=== PATIENT | male | born 1960 | race Caucasian/White ===

== ENCOUNTER 2017-07-25 20:03 | Emergency (ER) | payer OTHER ==
[2017-07-25 20:12] VITALS: RESP 18
[2017-07-25] MEDS ORDERED: DIPH,PERTUS(ACELL)TETVAC-LF 0.5 ML VIAL IM ONE (21:06)
[2017-07-25] MEDS ORDERED: CEPHALEXIN 500MG STARTER PACK 4 CAP BTL PO STA (21:07)
--- NOTE | 2017-07-25 21:14 | ED ---
General Adult HPI - General Source: patient, family, EMS, RN notes reviewed Mode of arrival: EMS Limitations: no limitations <Nain Boone - Last Filed: 07/25/17 21:02> <Jameel Jones - Last Filed: 07/25/17 22:44> - General Chief complaint: Fall Stated complaint: Laceration Time Seen by Provider: 07/25/17 20:12 - History of Present Illness Initial comments: Chief complaint and history of present illness a 56-year-old male who is intoxicated. Reportedly fell at the bar. Presents now with laceration to his left ear. No reported loss of consciousness. No reported seizure activity. The patient has not called back. (Nain Boone) - Related Data Home Medications Medication Instructions Recorded Confirmed Multivitamins, Thera [Multivitamin 1 tab PO DAILY 07/25/17 07/25/17 (formulary)] Previous Rx's Medication Instructions Recorded Cephalexin [Keflex] 500 mg PO Q6HR #20 cap 07/25/17 Allergies Allergy/AdvReac Type Severity Reaction Status Date / Time No Known Allergies Allergy Verified 07/25/17 20:19 Review of Systems ROS Other: All systems not noted in ROS Statement are negative. <Nain Boone - Last Filed: 07/25/17 21:02> ROS Other: All systems not noted in ROS Statement are negative. <Jameel Jones - Last Filed: 07/25/17 22:44> ROS Statement: Those systems with pertinent positive or pertinent negative responses have been documented in the HPI. review of systems patient denies headache or neck pain. Answering questions appropriately but is intoxicated. Patient denies chest pain shortness breath GI / problems. No apparent neuro deficits other than being intoxicated. Past medical problems significant for GERD, osteoarthritis, he's had reconstruction of his left wrist. Family history esophageal cancer. Patient has ALLERGY to dust. Denies smoking or alcohol abuse. (Nain Boone) Past Medical History Past Medical History: GERD/Reflux, Osteoarthritis (OA) History of Any Multi-Drug Resistant Organisms: None Reported Past Surgical History: Orthopedic Surgery Additional Past Surgical History / Comment(s): reconstruction left wrist/ DEBRIDEMENT OF SCROTAL WOUND 2013 Past Anesthesia/Blood Transfusion Reactions: No Reported Reaction Past Psychological History: No Psychological Hx Reported Smoking Status: Never smoker Past Alcohol Use History: Occasional Past Drug Use History: Marijuana - Past Family History Father Family Medical History: Cancer <Nain Boone - Last Filed: 07/25/17 21:02> General Exam Limitations: no limitations <Nain Boone - Last Filed: 07/25/17 21:02> <Jameel Jones - Last Filed: 07/25/17 22:44> - General Exam Comments Initial Comments: General: The patient is awake , alert, brought in by EMS. Laceration left ear. Vital signs temperature 97.9 pulse 81 respiratory rate 18 pulse ox 96% room air blood pressure 119/65 Eye: Pupils are equal, round and reactive to light, extra-ocular movements are intact ; there is normal conjunctiva bilaterally. No signs of icterus. Ears, nose, mouth and throat: There are moist mucous membranes and no oral lesions. examination of left ear shows a laceration through and through. This was anesthetized cleaned and closed, see procedure. Neck: The neck is supple, there is no tenderness Cardiovascular: no murmur appreciated. Respiratory: lungs are clear to auscultation Gastrointestinal: abdomen soft to palpation. Back: no complaints of pain. Musculoskeletal: Normal ROM, no tenderness, There is no pedal edema. There is no calf tenderness or swelling. Sensation intact. Pulses equal bilaterally 2+. Neurological: intoxicated but neurologically intact. Skin: Skin is warm and dry and no rashes or lesions are noted. Psychiatric: alcoholic , denies depression (Nain Boone) Course <PaoloNain gamez - Last Filed: 07/25/17 21:02> <Jameel Jones - Last Filed: 07/25/17 22:44> Vital Signs 07/25/17 20:07 Temperature 97.9 F Pulse Rate 81 Respiratory 18 Rate Blood Pressure 119/65 O2 Sat by Pulse 96 Oximetry - Reevaluation(s) Reevaluation #1: 07/25/17 22:43 Is awake and alert, has family to be discharged home to (Jameel Jones) Procedures <PaoloNain - Last Filed: 07/25/17 21:02> <Jameel Jones - Last Filed: 07/25/17 22:44> - Procedures Initial comment: procedure; using 1% lidocaine the laceration to the ear lobe left side was cleaned. 5-0 nylon was used to close the wound. Approximately 10 interrupted mattress style sutures are placed. The patient's tetanus shot was updated replaced on cephalexin. Advised to return in 10 days for suture to remove the reduction of any signs of infection. Dr. Boone (Nain Boone) Medical Decision Making <Nain Boone - Last Filed: 07/25/17 21:02> <Jameel Jones - Last Filed: 07/25/17 22:44> - Medical Decision Making medical decision making; patient presents emergency room intoxicated, fell at the bar, laceration left ear. CT of the brain and cervical spine pending. This case is endorsed final disposition to Dr. Livingston (Nain Boone) 56 male status post fall, laceration was repaired here in the emergency room, patient had CT brain and C-spine which were negative for traumatic injury. Patient will be discharged home (Jameel Jones) Disposition <Nain Boone - Last Filed: 07/25/17 21:02> <Jameel Jones - Last Filed: 07/25/17 22:44> Clinical Impression: Fall, Head injury, Alcohol intoxication, Laceration of ear Disposition: HOME SELF-CARE Condition: Good Instructions: Fall Prevention for Older Adults (ED), Laceration (ED), Head Injury (ED) Prescriptions: Cephalexin [Keflex] 500 mg PO Q6HR #20 cap Referrals: None,Stated [Primary Care Provider] - 1-2 days
--- NOTE | 2017-07-25 22:25 | CT ---
EXAMINATION TYPE: CT brain althea mann DATE OF EXAM: 07/25/2017 COMPARISON: NONE HISTORY: fall injury with headache and neck pain CT DLP: head 1150.50 and body 337.50 mGycm. Automated Exposure Control for Dose Reduction was Utilize d. TECHNIQUE: CT scan of the head and cervical spine are performed without contrast. FINDINGS: There is no acute intracranial hemorrhage or midline shift identified. There is and ventr icular and sulcal prominence felt to reflect mild to moderate diffuse age-related cerebral atrophy. T here is moderate to severe mucosal thickening involving ethmoid sinuses bilaterally. There is mild to moderate mucosal thickening involving visualized portion of both maxillary sinuses. There is moderat e mucosal thickening involving left sphenoid sinus. There is eccentric moderate mucosal thickening an teriorly in right sphenoid sinus. The globes are intact bilaterally. The calvarium is intact Cervical spine is visualized in its entirety from C1 through upper thoracic levels and demonstrates s atisfactory alignment without evidence of acute fracture or dislocation. Prevertebral soft tissue ap pears within normal limits. The C1-C2 articulation is within normal limits on the coronal images. Vertebral body heights are maintained. There is mild to moderate disc space narrowing most prominent posteriorly C6-C7 level where there is sclerosis. There is mild anterior spurring. There is mild ante rior spurring also seen C5-C6 level. No large posterior disc herniations are seen on sagittal images. There is suspected greater than 1 cm nodule left thyroid lobe seen best coronal image 13. Thyroid is overall heterogeneous. Nonemergent follow-up advised. Axial images shows multilevel uncovertebral fa cet degenerative changes bilaterally attributed to multilevel neural foraminal narrowing. There is ce ntral disc protrusion effacing anterior thecal sac C5-C6 level on axial image 54. Lung apices are allison ssly clear. IMPRESSION: 1. There is no acute fracture or dislocation evident in the cervical spine. Greater than 1 cm left th yroid nodule suspected. Nonemergent thyroid ultrasound follow-up advised. 2. No acute intracranial hemorrhage hemorrhage or midline shift is seen. Mild to moderate diffuse cer ebral atrophy noted.
[2017-07-25 22:59] VITALS: BP 115/63; PULSE 75; TEMP 97.5
--- NOTE | 2017-07-28 04:06 | CDI ---
Documentation Clarification OP Dear Jameel Collins Please do addendum to ED report for missing Ear laceration repair length. Thank you, Domitila Salmon Resort Manager If you have any questions, please contact Preload Supervisor at [phone] [facility]
== END 2017-07-25 23:30 | disposition home or self-care (01) ==
LOC: EC 20:03
DX: S01.312A Laceration without foreign body of left ear, initial encounter (principal); F10.120 Alcohol abuse with intoxication, uncomplicated; Z23 Encounter for immunization; Z79.899 Other long term (current) drug therapy; W01.198A Fall on same level from slipping, tripping and stumbling with subsequent striking against other object, initial encounter; Y92.59 Other trade areas as the place of occurrence of the external cause
CPT/HCPCS: 12013; 70450; 72125; 90471; 90715; 99284

== ENCOUNTER → 2017-08-12 | Outpatient (CLI) | payer OTHER ==
--- NOTE | 2017-08-13 19:13 | US ---
EXAMINATION TYPE: US thyroid st tissue head/neck DATE OF EXAM: 08/12/2017 COMPARISON: CT 2018 CLINICAL HISTORY: R22.0 SWELLING MASS. Thyroid nodule seen on recent CT GLAND SIZE: Right Lobe: 5.0 x 1.8 x 1.7 cm Overall Parenchyma: homogenous Left Lobe: 3.9 x 2.0 x 1.6 cm Overall Parenchyma: homogeneous Isthmus Thickness: 0.5 cm NODULES RIGHT: # of nodules measured on right: 1 1. 0.8 X 0.6 x 0.7 cm hypoechoic solid nodule at the mid pole with well-defined margins. This nodul e is wider than tall and shows intranodular vascularity. Prior size: no previous LEFT: # of nodules measured on left: 2 1. 1.4 X 0.9 x 1.1 cm hypoechoic solid nodule at the mid pole with well-defined margins and small c alcification. This nodule is wider than tall and shows intranodular vascularity. Prior size: no previous 2. 0.7 X 0.7 x 0.7 cm hypoechoic solid nodule at the mid pole with well-defined margins; interrupted peripheral calcification. This nodule is wider than tall and shows intranodular vascularity. Prior size: no previous ISTHMUS: # of nodules measured in the isthmus: 0 Bilateral neck scanned, no evidence of lymphadenopathy. IMPRESSION: 1. Greater than 1 cm left lobe thyroid nodule. Consider correlation with nuclear medicine thyroid sca n. 2. Bilateral subcentimeter nodules.
== END | disposition home or self-care (01) ==
LOC: RADUSWWP 16:20
PROVIDERS: ATTEND Internal Medicine
DX: E04.2 Nontoxic multinodular goiter (principal)
CPT/HCPCS: 76536

== ENCOUNTER → 2017-09-28 | Outpatient (CLI) | payer OTHER ==
--- NOTE | 2017-09-28 17:03 | NM ---
EXAMINATION TYPE: NM thyroid image only DATE OF EXAM: 09/28/2017 COMPARISON: Ultrasound 08/12/2017 HISTORY: 56-year-old male abnormal thyroid labs TECHNIQUE: After the intravenous administration of 10.8 mCi Tc 99m Sodium Pertechnetate images of the thyroid gland were obtained in multiple projections. FINDINGS: Right lobe is larger than the left lobe reflecting the measurements on ultrasound. There is a round cold defect in the peripheral left mid pole corresponding to the dominant 1.4 cm nod ule seen on ultrasound. Otherwise, there is homogeneous glandular uptake. IMPRESSION: Cold nodule at the left midpole corresponding to the 1.4 cm nodule seen on ultrasound. No evidence fo r hyperfunctioning adenoma. FNA should be considered for this nodule.
== END | disposition home or self-care (01) ==
LOC: RADNMMAIN 10:49
PROVIDERS: ATTEND Internal Medicine
DX: E04.1 Nontoxic single thyroid nodule (principal)
CPT/HCPCS: 78013; A9512

== ENCOUNTER → 2017-11-23 | Outpatient (CLI) | payer OTHER | END | disposition home or self-care (01) | LOC: LABWHC1 15:38 | PROVIDERS: ATTEND Internal Medicine Endocrinology, Diabetes & Metabolism | DX: E03.8 Other specified hypothyroidism (principal) | CPT/HCPCS: 36415; 84443 ==

== ENCOUNTER → 2019-03-30 | Outpatient (CLI) | payer OTHER ==
--- NOTE | 2019-03-30 16:01 | US ---
EXAMINATION TYPE: US thyroid st tissue head/neck DATE OF EXAM: 03/30/2019 COMPARISON: Nuclear medicine thyroid scan dated 09/28/2017 and thyroid ultrasound dated 08/13/2017 CLINICAL HISTORY: R22.0 SWELLING/MASS/PALPABLE ABNORMALITY HEAD/NECK. GLAND SIZE: Right Lobe: 4.9 x 1.4 x 1.5 cm Overall Parenchyma: homogenous Left Lobe: 3.7 x 1.8 x 1.4 cm Overall Parenchyma: homogeneous Isthmus Thickness: 0.2 cm NODULES RIGHT: # of nodules measured on right: 1 1. 0.8 X 0.6 x 0.6 cm solid nodule at the mid pole with well-defined margins. This nodule is wider than tall and shows intranodular vascularity. Prior size: 0.8 x 0.6 x 0.7 cm LEFT: # of nodules measured on left: 2 1. 1.1 X1.4 x 0.8 cm solid nodule at the mid pole with well-defined margins . This nodule is wider than tall and shows intranodular vascularity. Prior size: 1.4 x 0.9 x 1.1cm 2. 0.7 X 0.7 x 0.6 cm solid nodule at the mid pole with well-defined margins . This nodule is wider than tall and shows intranodular vascularity. Prior size: 0.7 x 0.7 x 0.7 cm ISTHMUS: # of nodules measured in the isthmus: 0 Bilateral neck scanned, no evidence of lymphadenopathy. IMPRESSION: Similar size of the bilateral thyroid nodules in comparison to the exam of 08/13/2017. Specifically th ere is stable size of the 1.4 cm left thyroid nodule that was demonstrated to be a cold nodule on the prior nuclear medicine thyroid scan dated 09/28/2017.
== END ==
LOC: RADUSWWP 15:10
PROVIDERS: ATTEND Internal Medicine
DX: E04.2 Nontoxic multinodular goiter (principal)
CPT/HCPCS: 76536

== ENCOUNTER → 2019-03-30 | Outpatient (CLI) | payer OTHER ==
[2019-03-30 19:14] LABS: African American GFR (CKD) 107.2 (60.0-200.0); Albumin 4.5 g/dL (3.80-4.90); Anion Gap 7.2 mmol/L (4.00-12.00); BUN/Creat Ratio 14.44 Ratio (12.00-20.00); Calcium 9.6 mg/dL (8.7-10.3); Carbon Dioxide 26.8 mmol/L (21.6-31.8); Globulin 1.5 g/dL (1.6-3.3); Potassium 4.3 mmol/L (3.5-5.5); Total Bilirubin 0.3 mg/dL (0.2-1.2)
== END | disposition home or self-care (01) ==
LOC: LABWHC1 14:47
PROVIDERS: ATTEND Internal Medicine Endocrinology, Diabetes & Metabolism
DX: E10.65 Type 1 diabetes mellitus with hyperglycemia (principal)
CPT/HCPCS: 36415; 80053; 83519; 84681

== ENCOUNTER → 2019-07-05 | Outpatient (CLI) | payer OTHER ==
[2019-07-05 23:44] LABS: African American GFR (CKD) 94.4 (60.0-200.0); Albumin 4.8 g/dL (3.80-4.90); Anion Gap 9.8 mmol/L (4.00-12.00); Calcium 9.6 mg/dL (8.7-10.3); Carbon Dioxide 25.2 mmol/L (21.6-31.8); Chol/HDL Ratio 4.2; Globulin 1.6 g/dL (1.6-3.3); LDL Cholesterol,Calculated 216.4 mg/dL (0.0-131.0); Non-African American GFR(CKD) 81.4 (60.0-200.0); Total Bilirubin 0.4 mg/dL (0.2-1.2); Total Protein 6.4 g/dL (6.2-8.2); VLDL Calculation 20.6 mg/dL (5.00-40.00)
[2019-07-06 01:45] LABS: Hemoglobin A1C 5.9 % (4.0-6.0)
== END | disposition home or self-care (01) ==
LOC: LABWHC1 15:44
PROVIDERS: ATTEND Internal Medicine Endocrinology, Diabetes & Metabolism
DX: E10.65 Type 1 diabetes mellitus with hyperglycemia (principal)
CPT/HCPCS: 36415; 80053; 80061; 82043; 82570; 83036; 84443

== ENCOUNTER → 2020-05-03 | Outpatient (CLI) | payer OTHER ==
[2020-05-04 00:40] LABS: Hemoglobin A1C 11.7 % (4.0-6.0)
[2020-05-04 03:49] LABS: African American GFR (CKD) 111.7 (60.0-200.0); Albumin 4.3 g/dL (3.80-4.90); Albumin/Globulin Ratio 2.26 (1.60-3.17); Anion Gap 10.6 mmol/L (4.00-12.00); BUN/Creat Ratio 18.75 Ratio (12.00-20.00); Calcium 9.4 mg/dL (8.7-10.3); Carbon Dioxide 24.4 mmol/L (21.6-31.8); Chol/HDL Ratio 2.7; Globulin 1.9 g/dL (1.6-3.3); LDL Cholesterol,Calculated 142.8 mg/dL (0.0-131.0); Non-African American GFR(CKD) 96.4 (60.0-200.0); Potassium 4.2 mmol/L (3.5-5.5); Total Bilirubin 0.7 mg/dL (0.2-1.2); Total Protein 6.2 g/dL (6.2-8.2); VLDL Calculation 20.2 mg/dL (5.00-40.00)
[2020-05-04 07:40] LABS: Urine Creatinine 107.3 mg/dL
== END | disposition home or self-care (01) ==
LOC: LABWHC1 15:13
PROVIDERS: ATTEND Internal Medicine Endocrinology, Diabetes & Metabolism
DX: E10.65 Type 1 diabetes mellitus with hyperglycemia (principal)
CPT/HCPCS: 36415; 80053; 80061; 82043; 82570; 83036; 84443

== ENCOUNTER → 2020-11-22 | Outpatient (CLI) | payer OTHER ==
[2020-11-22 15:08] LABS: Albumin 4.6 g/dL (3.80-4.90); Albumin/Globulin Ratio 2.56 (1.60-3.17); Anion Gap 10.3 mmol/L (4.00-12.00); BUN/Creat Ratio 18.75 Ratio (12.00-20.00); Calcium 9.4 mg/dL (8.7-10.3); Carbon Dioxide 25.7 mmol/L (21.6-31.8); Chol/HDL Ratio 2.53; Globulin 1.8 g/dL (1.6-3.3); LDL Cholesterol,Calculated 131.8 mg/dL (0.0-131.0); Non-African American GFR(CKD) 95.7 (60.0-200.0); Potassium 4.4 mmol/L (3.5-5.5); Total Bilirubin 0.7 mg/dL (0.3-1.2); Total Protein 6.4 g/dL (6.2-8.2); VLDL Calculation 16.2 mg/dL (5.00-40.00)
[2020-11-23 03:12] LABS: Urine Creatinine 75.2 mg/dL
== END | disposition home or self-care (01) ==
LOC: LABWHC1 07:04
PROVIDERS: ATTEND Internal Medicine Endocrinology, Diabetes & Metabolism
DX: E10.65 Type 1 diabetes mellitus with hyperglycemia (principal); E04.2 Nontoxic multinodular goiter
CPT/HCPCS: 36415; 80053; 80061; 82043; 82570; 83036; 84443

== ENCOUNTER → 2020-12-31 | Outpatient (CLI) | payer OTHER ==
--- NOTE | 2020-12-31 08:57 | US ---
EXAMINATION TYPE: US prostate transrectal DATE OF EXAM: 12/31/2020 COMPARISON: NONE CLINICAL HISTORY: R97.2 Elevated prostate specific antigen [PSA]. Patient states he has an enlarged p rostate. Patient states he has difficulty urinating at night. This examination was performed using the transrectal probe. EXAM MEASUREMENTS: Gland Size: 5.0 x 4.6 x 3.0 cm Volume: 36.7 ml Predicted PSA: 4.4 Actual PSA (if available):6.0 Peripheral zone appears heterogenous with no prominent masses or lesions seen. Femoral vesicles within normal limits on initial images. Prostate gland is slightly enlarged in size. Central calcifications. No hypoechoic nodules. IMPRESSION: Slightly enlarged prostate consistent with BPH. No suspicious nodules. Because of actual PSA out of proportion to predicted PSA consider further investigation with random sampling and/or MR I. Predicted PSA = volume x 0.12 ng/ml Calculated Volume = 0.5236 x L x W x H
== END | disposition home or self-care (01) ==
LOC: RADUSWWP 06:54
PROVIDERS: ATTEND Urology
DX: N40.0 Benign prostatic hyperplasia without lower urinary tract symptoms (principal)
CPT/HCPCS: 76872

== ENCOUNTER → 2021-04-08 | Outpatient (CLI) | payer OTHER ==
[2021-04-08 12:29] LABS: Hemoglobin A1C 10.7 % (4.0-6.0)
[2021-04-08 13:14] LABS: African American GFR (CKD) 93.1 (60.0-200.0); Albumin 4.6 g/dL (3.80-4.90); Albumin/Globulin Ratio 2.19 (1.60-3.17); Anion Gap 9.1 mmol/L (4.00-12.00); Calcium 9.8 mg/dL (8.7-10.3); Carbon Dioxide 27.9 mmol/L (21.6-31.8); Chol/HDL Ratio 3.07; Globulin 2.1 g/dL (1.6-3.3); LDL Cholesterol,Calculated 123.8 mg/dL (0.0-131.0); Non-African American GFR(CKD) 80.3 (60.0-200.0); Potassium 4.8 mmol/L (3.5-5.5); Total Bilirubin 0.5 mg/dL (0.2-1.2); Total Protein 6.7 g/dL (6.2-8.2); VLDL Calculation 52.2 mg/dL (5.00-40.00)
[2021-04-08 13:21] LABS: T4, Free (Free Thyroxine) 1.1 ng/dL (0.80-1.80)
== END | disposition home or self-care (01) ==
LOC: LABWHC1 07:08
PROVIDERS: ATTEND Internal Medicine
DX: C61 Malignant neoplasm of prostate (principal); I10 Essential (primary) hypertension; E03.9 Hypothyroidism, unspecified; E78.5 Hyperlipidemia, unspecified; E11.9 Type 2 diabetes mellitus without complications
CPT/HCPCS: 36415; 80053; 80061; 83036; 84439; 84443; 84481

== ENCOUNTER → 2021-05-02 | Outpatient (CLI) | payer OTHER ==
--- NOTE | 2021-05-02 09:16 | XR ---
EXAMINATION TYPE: XR chest 2V DATE OF EXAM: 05/02/2021 COMPARISON: None INDICATION: Presurgical clearance, prostate cancer TECHNIQUE: Frontal and lateral views of the chest are obtained. FINDINGS: The heart size is normal. The pulmonary vasculature is normal. The lungs are clear. No suspicious sclerotic lesions identified within the osseous structures. IMPRESSION: 1. No acute pulmonary process.
[2021-05-02 09:24] LABS: Basophils # (A) 0.1 k/uL (0-0.2); Basophils % (A) 2 %; Eosinophils # (A) 0.4 k/uL (0-0.7); Eosinophils % (A) 7 %; HCT 45.4 % (39.0-53.0); HGB 15.8 gm/dL (13.0-17.5); Lymphocytes # (A) 1.6 k/uL (1.0-4.8); Lymphocytes % (A) 31 %; MCH 31.2 pg (25.0-35.0); MCHC 34.8 g/dL (31.0-37.0); MCV 89.8 fL (80.0-100.0); Mean Platelet Volume 7.6; Monocytes # (A) 0.4 k/uL (0-1.0); Monocytes % (A) 7 %; Neutrophils # (A) 2.6 k/uL (1.3-7.7); Neutrophils % (A) 50 %; Platelet Count 222 k/uL (150-450); RBC 5.06 m/uL (4.30-5.90); RDW 13.3 % (11.5-15.5); WBC 5.3 k/uL (3.8-10.6)
[2021-05-02 09:33] LABS: African American GFR (CKD) >90 (>60 ml/min/1.73 sqM); Anion Gap 7 mmol/L; Blood Urea Nitrogen 12 mg/dL (9-20); Calcium 9.7 mg/dL (8.4-10.2); Carbon Dioxide 26 mmol/L (22-30); Chloride 102 mmol/L (98-107); Glucose 169 mg/dL (74-99); Non-African American GFR(CKD) >90 (>60 ml/min/1.73 sqM); Potassium 4.3 mmol/L (3.5-5.1); Sodium 135 mmol/L (137-145)
[2021-05-02 10:34] LABS: Appearance,Urine Clear (Clear); Bilirubin,Urine Negative (Negative); Blood,Urine Negative (Negative); Color,Urine Light Yellow; Glucose,Urine (UA) Trace (Negative); Ketones,Urine Negative (Negative); Leukocyte Esterase,Urine Negative (Negative); Nitrite,Urine Negative (Negative); Protein,Urine Negative (Negative); Specific Gravity,Urine 1.004 (1.001-1.035); Urobilinogen,Urine <2.0 mg/dL (<2.0)
== END | disposition home or self-care (01) ==
LOC: LABPAT 08:24
PROVIDERS: ATTEND Urology
DX: Z01.818 Encounter for other preprocedural examination (principal); C61 Malignant neoplasm of prostate
CPT/HCPCS: 71046; 80048; 81003; 85025; 87086; 93005

== ENCOUNTER 2021-05-10 09:19 | Observation (INO) | payer OTHER ==
[2021-05-08 09:14] VITALS: BMI 24.3
--- NOTE | 2021-05-09 14:48 | P.HPIHPCON ---
History of Present Illness H&P Date: 05/09/21 This is a 60-year-old male with history of Casie 7(4+3) prostate cancer Discussed with him treatment option for his prostate cancer. Discussed with him surgery and radiation in detail. He agreed to proceed with a robotic prostatectomy. Discussed the risk of surgery which includes but not limited to bleeding, infection, injury to nearby organ, urinary incontinence, erectile dysfunction, cancer recurrence. Also discussed with him risk from anesthesia. He understood all the risk and agreed to proceed with robotic-assisted prostatectomy and pelvic lymph node dissection Consent for Procedure: I have explained the operation/procedure to the patient, including the risks, benefits, side effects, alternative therapies (including not receiving the proposed treatment or service), the likelihood of the patient achieving his/her goals, and potential recuperation problems for the procedure/sedation/analgesia, as well as any blood products, if indicated. I also explained to the patient the risks, benefits and side effects of the alternatives, as well as the risks related to not receiving the proposed procedure, care, treatment, or services. Past Medical History Past Medical History: Cancer, Diabetes Mellitus, GERD/Reflux, Osteoarthritis (OA), Thyroid Disorder Additional Past Medical History / Comment(s): TYPE 1, MIGRAINE HEADACHE, THYROID NODULE, PROSTATE CANCER , UVULA SURGERY History of Any Multi-Drug Resistant Organisms: None Reported Past Surgical History: Hernia Repair, Orthopedic Surgery Additional Past Surgical History / Comment(s): reconstruction left wrist, DEBRIDEMENT OF SCROTAL WOUND 2013, HERNIA REPAIR WITH MESH Past Anesthesia/Blood Transfusion Reactions: No Reported Reaction Smoking Status: Never smoker - Past Family History Father Family Medical History: Cancer Sister(s) Family Medical History: Cancer Additional Family Medical History / Comment(s): SKIN CANCER Medications and Allergies Home Medications Medication Instructions Recorded Confirmed Type Multivitamins, Thera [Multivitamin 1 tab PO DAILY 07/25/17 05/08/21 History (formulary)] Insulin Glargine,Hum.rec.anlog 28 units PO HS 03/30/19 05/08/21 History [Basaglar Kwikpen U-100] Insulin Aspart [NovoLOG Flexpen] 6 - 8 units SQ TID PRN 05/08/21 05/08/21 History Levothyroxine Sodium [Synthroid] 50 mcg PO DAILY 05/08/21 05/08/21 History Rosuvastatin [Crestor] 40 mg PO 1800 05/08/21 05/08/21 History Tamsulosin [Flomax] 0.4 mg PO 2100 05/08/21 05/08/21 History Allergies Allergy/AdvReac Type Severity Reaction Status Date / Time No Known Allergies Allergy Verified 05/08/21 08:08 Surgical - Exam - General no distress, no pain - Eyes PERRL, normal ocular movement - ENT normal nares, normal mucosa - Respiratory normal expansion, normal respiratory effort - Cardiovascular Rhythm: regular - Abdomen Abdomen: soft, non tender - Psychiatric oriented to time, oriented to person, oriented to place Assessment and Plan Assessment: 60-year-old male with history of prostate cancer Or for robotic prostatectomy with pelvic lymph node dissection
[~2021-05-10 09:19] MED LIST: DEXAMETHASONE SOD PHOSPHATE 4 MG/ML 1 ML VIAL IV ONE; ONDANSETRON 4 MG/2 ML VIAL IVP ONE
[2021-05-10 09:45] LABS: Glucose,Whole Blood 251 mg/dL (75-99)
[2021-05-10] MEDS: LACTATED RINGERS 1,000 ML IV SCH (10:01)
[2021-05-10] MEDS ORDERED: LACTATED RINGERS 1,000 ML IV ONE ×3 (10:01→16:56)
[2021-05-10] MEDS ORDERED: fentaNYL (PF) 50 MCG/ML 2 ML AMP IVP ONE (10:20)
[2021-05-10] MEDS ORDERED: MIDAZOLAM 2 MG/2 ML VIAL IVP ONE (10:20)
[2021-05-10] MEDS ORDERED: INSULIN ASPART (NovoLOG) 100 UNIT/ML VIAL SQ ONE ×2 (10:36→17:05)
[2021-05-10] MEDS: HEPARIN SODIUM,PORCINE/PF 5,000 UNIT/0.5 ML SYRINGE SQ PRN (10:36)
[2021-05-10] MEDS ORDERED: MIDAZOLAM 2 MG/2 ML VIAL ONE (12:14)
[2021-05-10] MEDS ORDERED: NEOSTIGMINE 1 MG/ML 10 ML VIAL ONE (12:14)
[2021-05-10] MEDS ORDERED: ROPIVACAINE 5 MG/ML 30 ML VIAL ONE (12:14)
[2021-05-10] MEDS ORDERED: ePHEDrine SULFATE/0.9% NACL/PF 50 MG/5 ML SYRINGE IV ONE (12:14)
[2021-05-10] MEDS ORDERED: SODIUM CHLORIDE 0.9% (PF) 10 ML VIAL ONE (12:14)
[2021-05-10] MEDS ORDERED: HYDROmorphone (PF) 1 MG/ML ONE (12:14)
[2021-05-10] MEDS ORDERED: LIDOCAINE 1% INJ 10MG/ML (20 ML MDV) ONE (12:14)
[2021-05-10] MEDS ORDERED: WATER FOR INJECTION, STERILE 10 ML VIAL IV ONE (12:14)
[2021-05-10] MEDS ORDERED: PROPOFOL 10 MG/ML 20 ML VIAL IV ONE (12:14)
[2021-05-10] MEDS ORDERED: ROCURONIUM 10 MG/ML (5 ML VIAL) IV ONE (12:14)
[2021-05-10] MEDS ORDERED: SUCCINYLCHOLINE CHLORIDE 100 MG/5 ML SYR IV ONE (12:14)
[2021-05-10] MEDS ORDERED: fentaNYL (PF) 50 MCG/ML 2 ML AMP ONE (12:14)
[2021-05-10] MEDS ORDERED: KETAMINE 10 MG/ML 20 ML VIAL ONE (12:14)
[2021-05-10] MEDS ORDERED: GLYCOPYRROLATE 0.2 MG/ML 2 ML VIAL ONE (12:14)
[2021-05-10] MEDS ORDERED: BUPIVACAINE (PF) 0.25% 30 ML VIAL SQ ONE (12:21)
--- NOTE | 2021-05-10 14:15 | P.ANPRN ---
Procedure Note - Anesthesia - Nerve Block Performed Bilateral Erector Spinae Single Time Out Performed: Yes (1019) Date of Procedure: 05/10/21 Procedure Start Time: Procedure Stop Time: Location of Patient: PreOp Indication: Acute Post-Operative Pain, Requested by Surgeon Specifically requested for management of pain by : Gregory Rodriguez Sedation Type: Sedate with meaningful contact maintained Preparation: Sterile Prep Position: Prone Catheter: None Needle Types: Pajunk Needle Gauge: 21 Ultrasound used to visualize needle placement: Yes Ultrasound used to observe medication spread: Yes Injectate: 0.5% Ropivacaine (see comment for volume) (15cc + nacl pf 15cc each side) Blood Aspirated: No Pain Paresthesia on Injection Noted: No Resistance on Injection: Normal Image Stored and Saved: Yes Events: Uneventful and Well Tolerated
[2021-05-10] MEDS ORDERED: ceFAZolin 1 GM in SODIUM CHLORIDE 0.9% 100 ML IVPB SCH (16:00)
--- NOTE | 2021-05-10 16:13 | P.OP ---
Date of Procedure: 05/10/21 Preoperative Diagnosis: prostate Cancer Postoperative Diagnosis: same Procedure(s) Performed: robotic prostatectomy , right sided lymph node dissection and extensive lysis of adhesions Implants: None Anesthesia: DARRYLA Surgeon: Gregory Rodriguez Estimated Blood Loss (ml): 100 Pathology: other (Prostate, bilateral seminal vesicle, right sided pelvic lymph nodes) Condition: stable Disposition: PACU Indications for Procedure: This is a 60-year-old male with history of Casie 7(4+3) prostate cancer Discussed with him treatment option for his prostate cancer. Discussed with him surgery and radiation in detail. He agreed to proceed with a robotic pr ostatectomy. Discussed the risk of surgery which includes but not limited to bleeding, infection, injury to nearby organ, urinary incontinence, erectile dysfunction, cancer recurrence. Also discussed with him risk from anesthesia. He understood all the risk and agreed to proceed with robotic-assisted prostatectomy and pelvic lymph node dissection Operative Findings: Extensive adhesion along the left quadrant, colon adherent to the left sided pelvic sidewall, Description of Procedure: After preoperative antibiotics were started, the patient was taken to the operating room. Anesthesia was induced and the patient was placed in supine position, with adequate padding of the pressure points, shoulders, back, legs and arms. He was then prepped and draped in the standard fashion. A critical pause was performed using two patient identifiers. A 16F haddad catheter was placed to gravity drainage. A pneumo-peritoneum was created with placement of a Veress needle to 20 mm Hg without complication, and a 8 Fr trocar was placed above the umbillicus. Under direct vision a 8mm robotic ports was placed lateral to each rectus slightly below the camera port. The left iliac fossa 8mm port was placed. The right professional nursing assistant right iliac fossa 12mm port and right paramedian 5mm portwere placed. After the patient was placed in the trendelenberg position, the robot was then docked to the 8mm robotic ports and then each robotic arm and tower was checked in relation to the patient's legs and hands to avoid inadvertent compression. The peritoneal cavity was inspected. Patient had extensive adhesions along the left quadrant, the colon was fixed to the left pelvic sidewall, the sigmoid colon occupied the entire cul-de-sac Using the monopolar scissors adhesion were taken down sharply, more than 45 minutes were spent lysing adhesions. I was able to mobilize the colon enough to free the cul-de-sac to perform robotic prostatectomy, but there was still extensive adhesion along the left side given the risk of injuring the colon decision was made not to proceed with left-sided pelvic lymph nodes. Right obturator and external iliac lymph node packets were carefully dissected after careful visualization of the hypogastric artery and obturator nerve. There was careful attention paid to hemostasis with judicious use of cautery. An inverted U-shaped incision began laterally to the left medial umbilical ligament and extended high across the midline to the right umbilical ligament. The limbs of the "U" extended to the level of the vasa on both sides. We next developed the preperitoneal space and the space of Retzius. Of note given his previous bilateral inguinal hernias, there was no clear surgical plane Cautery was used to dissected the bladder away from the prostate. After the anterior bladder neck was incised and the bladder entered the the posterior bladder neck was exposed and the ureteral orifces identified. The posterior bladder neck was then incised and dissected away from the prostate. The vas and the seminal vesicles were now exposed and dissected to their insertions into the prostate and were not spared. The posterior layer of the Denonvillier's fascia was incised to enter ruddy the plane between prostate and perirectal fat. Each lateral pedicle was controlled with clips and cautery for hemostasis. Complete nerve preservation was performed on the right, no nerve preservation was performed on the left. The puboprostatic ligament was incised where it inserted into the apex of the prostate and a plane between urethra and dorsal venous complex developed to expose the anterior urethral surface. The anterior wall of the urethra was transected with the cut setting a few millimeters distal to the apex of the prostate. The dorsal vein was ligated using 3-0 V lock The urethrovesical anastomosis was performed . the posterior denovillers was reapproximated using 3-0 V lock. A 6 and 6 inch 3-0 V-Lock suture was used to anastomose the urethra and bladder, starting at the 6:00 posterior position. Mucosa was secured in every stitch, to ensure a mucosa to mucosa anastomosis. The stitch was regularly cinched and the anastomosis tightened. Care was taken to not violate the ureteral orifices. The Haddad catheter was advanced, the bladder filled, and the anastomosis was tested, as described above. Anastomsis was watertight at 100mL The periumbilical fascia was closed with 1-0-PDS suture in running fashion. All ports were closed with a subcuticular 4-0 monocryl and Dermabond. Sponge, instrument, and needle counts were correct at the end of the case x2. All specimens including prostate and lymph nodes were sent to pathology for diagnosis and will be available in a week. The patient tolerated the surgery well and without complication. He awoke without difficulty and was taken to the recovery room in stable condition
[2021-05-10] MEDS: HYDROmorphone 0.5 MG/0.5 ML SYRINGE IVP PRN ×3 (16:25→16:46)
[2021-05-10 16:27] LABS: Glucose,Whole Blood 235 mg/dL (75-99)
[2021-05-10] MEDS ORDERED: KETOROLAC 15 MG/ML 1 ML VIAL IVP ONE ×2 (16:46→16:47)
[2021-05-10] MEDS: SODIUM CHLORIDE 0.9% 1,000 ML IV SCH (17:49)
[2021-05-10] MEDS: HEPARIN SODIUM,PORCINE/PF 5,000 UNIT/0.5 ML SYRINGE SQ SCH ×2 (17:49→23:38)
[2021-05-10] MEDS: ATORVASTATIN 80 MG TAB PO SCH (18:18)
[2021-05-10] MEDS: KETOROLAC 15 MG/ML 1 ML VIAL IVP SCH ×2 (18:27→23:38)
[2021-05-10 22:14] LABS: Glucose,Whole Blood 216 mg/dL (75-99)
[2021-05-10] MEDS: INSULIN DETEMIR (LEVEMIR) 100 UNIT/ML SYR SQ SCH (23:37)
[2021-05-10] MEDS: HYDROcodone/APAP 5-325MG 1 EACH TAB PO PRN (23:37)
[2021-05-11] MEDS: SODIUM CHLORIDE 0.9% 1,000 ML IV SCH ×2 (05:26→07:32)
[2021-05-11] MEDS: LACTATED RINGERS 1,000 ML IV SCH ×2 (05:33→21:30)
[2021-05-11] MEDS: KETOROLAC 15 MG/ML 1 ML VIAL IVP SCH ×4 (06:00→22:16)
[2021-05-11] MEDS: LEVOTHYROXINE 50 MCG TAB PO SCH (06:00)
[2021-05-11 07:15] LABS: Glucose,Whole Blood 217 mg/dL (75-99)
[2021-05-11] MEDS: HEPARIN SODIUM,PORCINE/PF 5,000 UNIT/0.5 ML SYRINGE SQ SCH ×2 (07:29→16:50)
[2021-05-11] MEDS: HYDROcodone/APAP 5-325MG 1 EACH TAB PO PRN ×3 (07:29→18:14)
--- NOTE | 2021-05-11 09:39 | P.PN ---
Subjective Progress Note Date: 05/11/21 The patient underwent a robotic-assisted laparoscopic prostatectomy yesterday I . He is doing well this morning. His vital signs are stable. His urine is clear. His abdomen soft. The patient does not quite feel he is ready to go home this morning. He will ambulate. I'll put him on oral pain medication. If he feels better he can go home later today otherwise he'll be discharged home tomorrow. He'll go home with an indwelling catheter. Diet is regular activities Limited. Objective - Vital Signs Vital signs: Vital Signs Temp 98.3 F 05/11/21 08:00 Pulse 72 05/11/21 08:00 Resp 18 05/11/21 08:00 BP 156/85 05/11/21 08:00 Pulse Ox 95 05/11/21 08:00 Intake & Output 05/10/21 05/11/21 05/11/21 18:59 06:59 18:59 Intake Total 3090 1540 Output Total 630 1430 Balance 2460 110 Weight 76 kg Intake: IV 2550 Intake, IV Titration 1000 Amount Sodium Chloride 0.9% 1, 1000 000 ml @ 130 mls/hr IV . Q7H42M [facility] Rx#:[id number] Oral 540 540 Output: Urine 530 1430 Estimated Blood Loss 100 Other: Voiding Method Indwelling Catheter Indwelling Catheter # Bowel Movements 0 - Labs Labs: Abnormal Lab Results - Last 24 Hours (Table) 05/10/21 05/10/21 05/10/21 Range/Units 09:43 16:24 22:02 POC Glucose (mg/dL) 251 H 235 H 216 H (75-99) mg/dL 05/11/21 Range/Units 07:13 POC Glucose (mg/dL) 217 H (75-99) mg/dL
[2021-05-11] MEDS: INSULIN ASPART (NovoLOG) 100 UNIT/ML VIAL SQ SCH ×3 (11:50→22:15)
[2021-05-11 11:51] LABS: Glucose,Whole Blood 369 mg/dL (75-99)
[2021-05-11 16:48] LABS: Glucose,Whole Blood 269 mg/dL (75-99)
[2021-05-11] MEDS: ATORVASTATIN 80 MG TAB PO SCH (16:51)
[2021-05-11 22:07] LABS: Glucose,Whole Blood 186 mg/dL (75-99)
[2021-05-11] MEDS: HEPARIN SODIUM,PORCINE/PF 5,000 UNIT/0.5 ML SYRINGE SQ PRN (22:16)
[2021-05-11] MEDS: INSULIN DETEMIR (LEVEMIR) 100 UNIT/ML SYR SQ SCH (22:17)
[2021-05-11 22:39] VITALS: RESP 18
[2021-05-12] MEDS: HEPARIN SODIUM,PORCINE/PF 5,000 UNIT/0.5 ML SYRINGE SQ SCH ×2 (00:05→07:22)
[2021-05-12] MEDS: KETOROLAC 15 MG/ML 1 ML VIAL IVP SCH ×2 (05:28→11:49)
[2021-05-12] MEDS: LEVOTHYROXINE 50 MCG TAB PO SCH (05:28)
[2021-05-12 07:02] LABS: Glucose,Whole Blood 88 mg/dL (75-99)
[2021-05-12] MEDS: HYDROcodone/APAP 5-325MG 1 EACH TAB PO PRN ×2 (07:23→11:49)
[2021-05-12] MEDS: INSULIN ASPART (NovoLOG) 100 UNIT/ML VIAL SQ SCH ×2 (07:24→11:53)
--- NOTE | 2021-05-12 08:13 | P.DS ---
Providers Date of admission: 05/11/21 08:57 Attending physician: Gregory Rodriguez MD Primary care physician: [facility] Course: Patient is admitted for prostate cancer. He underwent a robotic-assisted prostatectomy 05/10/21. He is recuperating nicely. He is ambulating. His pain is under control. His urine is clear. He be discharged home with an indwelling catheter. He will follow in the office in 10 days. He was given a prescription of [place]. Postoperative instructions been given. Condition is good. Plan - Discharge Summary Discharge Rx Participant: Yes New Discharge Prescriptions: New HYDROcodone/APAP 5-325MG [[place] 5-325] 1 tab PO Q4HR PRN #10 tab PRN Reason: Pain No Action Multivitamins, Thera [Multivitamin (formulary)] 1 tab PO DAILY Insulin Glargine,Hum.rec.anlog [Basaglar Kwikpen U-100] 28 units PO HS Tamsulosin [Flomax] 0.4 mg PO 2100 Insulin Aspart [NovoLOG Flexpen] 6 - 8 units SQ TID PRN PRN Reason: ELEVATED BLOOD SUGAR-SLIDING Levothyroxine Sodium [Synthroid] 50 mcg PO DAILY Rosuvastatin [Crestor] 40 mg PO 1800 Discharge Medication List Multivitamins, Thera [Multivitamin (formulary)] 1 tab PO DAILY 07/25/17 [History] Insulin Glargine,Hum.rec.anlog [Basaglar Kwikpen U-100] 28 units PO HS 03/30/19 [History] Insulin Aspart [NovoLOG Flexpen] 6 - 8 units SQ TID PRN 05/08/21 [History] Levothyroxine Sodium [Synthroid] 50 mcg PO DAILY 05/08/21 [History] Rosuvastatin [Crestor] 40 mg PO 1800 05/08/21 [History] Tamsulosin [Flomax] 0.4 mg PO 2100 05/08/21 [History] HYDROcodone/APAP 5-325MG [[place] 5-325] 1 tab PO Q4HR PRN #10 tab 05/11/21 [Rx] Follow up Appointment(s)/Referral(s): Gregory Rodriguez MD [STAFF PHYSICIAN] - 10 Days Discharge Disposition: HOME SELF-CARE
[2021-05-12 08:44] VITALS: BP 151/82; PULSE 70; TEMP 98.4
[2021-05-12 11:29] LABS: Glucose,Whole Blood 132 mg/dL (75-99)
== END 2021-05-12 13:54 | disposition home or self-care (01) ==
LOC: OR 09:19 → 4SSUR 16:07 → OR 05-11 08:57 → 4SSUR 05-11 08:57
PROVIDERS: ADMIT Urology; ATTEND Urology
DX: C61 Malignant neoplasm of prostate (principal); E11.9 Type 2 diabetes mellitus without complications; N41.0 Acute prostatitis; M19.90 Unspecified osteoarthritis, unspecified site; K21.9 Gastro-esophageal reflux disease without esophagitis; G43.909 Migraine, unspecified, not intractable, without status migrainosus; E78.5 Hyperlipidemia, unspecified; E04.1 Nontoxic single thyroid nodule; Z20.822 Contact with and (suspected) exposure to COVID-19; Z79.890 Hormone replacement therapy; Z79.4 Long term (current) use of insulin; Z79.899 Other long term (current) drug therapy; Z98.890 Other specified postprocedural states; Z80.8 Family history of malignant neoplasm of other organs or systems
CPT/HCPCS: 55866; 38589; 64999; 86900; 86901; 88305; 86850; 88307; 88309; 87635; 36415; G0378 ×2; J2250; J1100; J2710; J0690 ×4; J2405; J2001; J3010; J1170 ×2; J2795; J1885 ×3; J0330; J2704; J1644 ×3

== ENCOUNTER → 2021-07-15 | Outpatient (CLI) | payer OTHER | END | disposition home or self-care (01) | LOC: LABWHC1 07:04 | PROVIDERS: ATTEND Urology | DX: C61 Malignant neoplasm of prostate (principal) | CPT/HCPCS: 36415; 84153 ==

== ENCOUNTER → 2021-09-20 | Outpatient (CLI) | payer OTHER ==
--- NOTE | 2021-09-20 19:02 | XR ---
EXAMINATION TYPE: XR cervical spine limited DATE OF EXAM: 09/20/2021 COMPARISON: CT dated 07/25/2017 INDICATION: Neck pain TECHNIQUE: 3 views of the cervical spine FINDINGS: Preserved cervical curvature. No significant anterolisthesis or retrolisthesis. No definite vertebral body collapse or acute displaced fracture. Degenerative changes at C5-6 and C6-7 levels with opposing endplate osteophytosis and degenerative di scs. Multilevel facet osteoarthropathy is also noted most evident involving the right C3-4 and C4-5 facets . Grossly unremarkable prevertebral soft tissue. Unremarkable atlantoaxial articulations. IMPRESSION: Degenerative changes of the cervical spine as described above. Further MRI assessment can be consider ed if clinically required.
== END | disposition home or self-care (01) ==
LOC: RADXRMAIN 15:52
PROVIDERS: ATTEND Internal Medicine
DX: M47.812 Spondylosis without myelopathy or radiculopathy, cervical region (principal)
CPT/HCPCS: 72040

== ENCOUNTER → 2021-10-15 | Outpatient (CLI) | payer OTHER | END | disposition home or self-care (01) | LOC: EEVIPCON 16:02 → LABPAT 16:02 | PROVIDERS: ATTEND Urology | DX: Z53.9 Procedure and treatment not carried out, unspecified reason (principal) ==

== ENCOUNTER 2021-10-23 06:53 | Observation (INO) | payer OTHER ==
[2021-10-16 07:21] LABS: Basophils # (A) 0.17 X 10*3/uL (0.00-0.10); Basophils % (A) 1.9 %; Eosinophils # (A) 0.39 X 10*3/uL (0.04-0.35); Eosinophils % (A) 4.3 %; HCT 45.6 % (39.6-50.0); HGB 15.3 g/dL (13.0-17.0); Immature Grans, Automated 0.2 %; Lymphocytes # (A) 2.25 X 10*3/uL (0.90-5.00); Lymphocytes % (A) 24.9 %; MCH 29.3 pg (27.0-32.0); MCHC 33.6 g/dL (32.0-37.0); MCV 87.2 fL (80.0-97.0); Mean Platelet Volume 10.6 fL (9.5-12.2); Monocytes # (A) 0.79 X 10*3/uL (0.20-1.00); Monocytes % (A) 8.7 %; NRBC Per 100 WBC 0 /100 WBCS (0.0-0.0); Neutrophils # (A) 5.41 X 10*3/uL (1.80-7.70); Platelet Count 247 X 10*3/uL (140-440); RBC 5.23 X 10*6/uL (4.40-5.60); RDW 13.1 % (11.5-14.5); WBC 9.03 X 10*3/uL (4.50-10.00)
[2021-10-16 07:22] LABS: African American GFR (CKD) 94.1 (60.0-200.0); Anion Gap 13.2 mmol/L (10.00-18.00); BUN/Creat Ratio 18.88 Ratio (12.00-20.00); Blood Urea Nitrogen 18.6 mg/dL (9.0-27.0); Carbon Dioxide 24.7 mmol/L (20.0-27.5); Non-African American GFR(CKD) 81.2 (60.0-200.0); Potassium 4.5 mmol/L (3.5-5.5)
[2021-10-22 08:21] VITALS: BMI 24.3
--- NOTE | 2021-10-22 16:25 | P.HPIHPCON ---
History of Present Illness H&P Date: 10/22/21 This is a 61-year-old male with history of [place] 7(4+3) prostate cancer. He underwent a robotic prostatectomy on May 13. Only right-sided pelvic lymph nodes dissection was performed, as he had significant adhesion along the left sided pelvic sidewall. Postoperative PSA was 1.3. he underwent a PSMA PET scan which showed evidence of a positive left-sided external iliac lymph nodes, possible uptake near the bladder, on review of images it was not definitive. Discussed with him given the finding on PET scan, discussed the option of open pelvic lymph node dissection on the left side. Discussed with him the risk of surgery which includes but not limited to bleeding, infection, injury to the ureter, injury to blood vessels, injury to nerves. Discussed with him also even with removal of lymph node there is a potential of persisting cancer. But on review of PET scan, the only significant finding was the lymph node. discussed with him also risk from anesthesia which includes but limited to heart attack, stroke, blood clots. Consent for Procedure: I have explained the operation/procedure to the patient, including the risks, benefits, side effects, alternative therapies (including not receiving the proposed treatment or service), the likelihood of the patient achieving his/her goals, and potential recuperation problems for the procedure/sedation/analgesia, as well as any blood products, if indicated. I also explained to the patient the risks, benefits and side effects of the alternatives, as well as the risks related to not receiving the proposed procedure, care, treatment, or services. Past Medical History Past Medical History: Cancer, Diabetes Mellitus, GERD/Reflux, Osteoarthritis (OA), Thyroid Disorder Additional Past Medical History / Comment(s): TYPE 1, MIGRAINE HEADACHE, THYROID NODULE, PROSTATE CANCER , History of Any Multi-Drug Resistant Organisms: Other MDRO Past Surgical History: Hernia Repair, Orthopedic Surgery Additional Past Surgical History / Comment(s): reconstruction left wrist, DEBRIDEMENT OF SCROTAL WOUND 2013, triple HERNIA REPAIR WITH MESH, uvula removed, PROSTATECTOMY Past Anesthesia/Blood Transfusion Reactions: No Reported Reaction Smoking Status: Never smoker - Past Family History Father Family Medical History: Cancer Sister(s) Family Medical History: Cancer Additional Family Medical History / Comment(s): SKIN CANCER Medications and Allergies Home Medications Medication Instructions Recorded Confirmed Type Multivitamins, Thera [Multivitamin 1 tab PO DAILY 07/25/17 10/22/21 History (formulary)] Insulin Glargine,Hum.rec.anlog 38 units PO HS 03/30/19 10/22/21 History [Basaglar Kwikpen U-100] Insulin Aspart [NovoLOG Flexpen] 10 units SQ TID PRN 05/08/21 10/22/21 History Levothyroxine Sodium [Synthroid] 50 mcg PO DAILY 05/08/21 10/22/21 History Rosuvastatin [Crestor] 40 mg PO 1800 05/08/21 10/22/21 History HYDROcodone/APAP 5-325MG [[place] 1 tab PO Q4HR PRN #10 tab 05/11/21 10/22/21 Rx 5-325] Allergies Allergy/AdvReac Type Severity Reaction Status Date / Time No Known Allergies Allergy Verified 10/22/21 08:09 Surgical - Exam - General well nourished, no distress, no pain - Eyes normal ocular movement - ENT normal nares, normal mucosa - Respiratory normal expansion, normal respiratory effort - Abdomen Abdomen: soft, non tender - Psychiatric oriented to time, oriented to person, oriented to place Results - Labs 10/15/21 16:41 10/15/21 16:41 Assessment and Plan Assessment: OR for open pelvic lymph node dissection
[~2021-10-23 06:53] MED LIST changes: -DEXAMETHASONE SOD PHOSPHATE 4 MG/ML 1 ML VIAL IV ONE; +LIDOCAINE 1% (10MG/ML) FOR IV START INTRADERMA PRN
[2021-10-23] MEDS ORDERED: HYDROmorphone 0.5 MG/0.5 ML SYRINGE IVP PRN (07:00)
[2021-10-23] MEDS: LACTATED RINGERS 1,000 ML IV SCH (07:33)
[2021-10-23 07:36] LABS: Glucose,Whole Blood 185 mg/dL (75-99)
[2021-10-23] MEDS ORDERED: MIDAZOLAM 2 MG/2 ML VIAL ONE (08:09)
[2021-10-23] MEDS ORDERED: ROCURONIUM 10 MG/ML (5 ML VIAL) IV ONE (08:09)
[2021-10-23] MEDS ORDERED: SUCCINYLCHOLINE CHLORIDE 100 MG/5 ML SYR IV ONE (08:09)
[2021-10-23] MEDS ORDERED: PHENYLEPHRINE-0.9% NACL SYG 1,000 MCG/10 ML SYRINGE ONE (08:09)
[2021-10-23] MEDS ORDERED: PROPOFOL 10 MG/ML 20 ML VIAL IV ONE (08:09)
[2021-10-23] MEDS ORDERED: GLYCOPYRROLATE 0.2 MG/ML 2 ML VIAL ONE (08:09)
[2021-10-23] MEDS ORDERED: HYDROmorphone (PF) 1 MG/ML ONE (08:09)
[2021-10-23] MEDS ORDERED: NEOSTIGMINE 1 MG/ML 10 ML VIAL ONE (08:09)
[2021-10-23] MEDS ORDERED: LIDOCAINE 1% INJ 10MG/ML (20 ML MDV) ONE (08:09)
[2021-10-23] MEDS ORDERED: fentaNYL (PF) 50 MCG/ML 2 ML AMP ONE (08:09)
[2021-10-23] MEDS ORDERED: LACTATED RINGERS 1,000 ML IV ONE ×2 (09:00)
[2021-10-23] MEDS ORDERED: BUPIVACAINE (PF) 0.5% 30 ML VIAL SQ ONE (10:35)
[2021-10-23] MEDS ORDERED: INSULIN ASPART (NovoLOG) 100 UNIT/ML VIAL SQ PRN (10:54)
[2021-10-23] MEDS ORDERED: ACETAMINOPHEN TAB 325 MG TAB PO PRN (10:55)
--- NOTE | 2021-10-23 11:14 | P.OP ---
Date of Procedure: 10/23/21 Preoperative Diagnosis: Prostate cancer, left pelvic lymphadenopathy Postoperative Diagnosis: Same Procedure(s) Performed: open Left pelvic lymph node dissection, lysis of adhesions Implants: None Anesthesia: DARRYLA Surgeon: Gregory Rodriguez Specialized Developer #1: Epi Bean Estimated Blood Loss (ml): 200 Pathology: other (Left pelvic lymph nodes) Condition: stable Disposition: PACU Indications for Procedure: This is a 61-year-old male with history of [place] 7(4+3) prostate cancer. He underwent a robotic prostatectomy on May 13. Only right-sided pelvic lymph nodes dissection was performed, as he had significant adhesion along the left sided pelvic sidewall. Postoperative PSA was 1.3. he underwent a PSMA PET scan which showed evidence of a positive left-sided external iliac lymph nodes, possible uptake near the bladder, on review of images it was not definitive. Discussed with him given the finding on PET scan, discussed the option of open pelvic lymph node dissection on the left side. Discussed with him the risk of surgery which includes but not limited to bleeding, infection, injury to the ureter, injury to blood vessels, injury to nerves. Discussed with him also even with removal of lymph node there is a potential of persisting cancer. But on review of PET scan, the only significant finding was the lymph node. discussed with him also risk from anesthesia which includes but limited to heart attack, stroke Description of Procedure: The patient was taken to the operating room and placed in the supine position. The abdomen and external genitalia were prepped and draped sterilely. A Edwards catheter was placed. The bladder was filled with sterile water. The scalpel was used to make a midline infraumbilical skin incision. The Bovie electrocautery was used to incise the linea alba in the midline, we attempted to stay in the extraperitoneal space to perform the lymph node dissection, but it was fairly scarred, thus given this finding decision was made to proceed with lymph node dissection intraperitoneally, the peritoneum was incised sharply. Once access was obtained into the peritoneal cavity the abdomen was inspected and patient had extensive adhesions along the left pelvic sidewall, the colon was fairly adherent to the left sidewall. The colon was mobilized off of the sidewall sharply using Metzenbaum scissors, after taking all the adhesions down along the left pelvic sidewall, more than 45 minutes were spent lysing ahdesions . access was obtained to the retroperitoneal space and the iliac vessels were visualized. The peritoneal reflection was incised, and the iliac arteries and veins were visualized. left pelvic lymphadenectomies were performed in the standard fashion, using a combination of sharp and blunt dissection. Margins of dissection were the bifurcation of the iliac vessels proximally, the circumflex iliac vein distally, the external iliac artery laterally, and the obturator nerve medially. All lymphatics were clipped prior to dividing them. There were no complications. No enlarged lymph nodes were encountered. Additionally lymph node dissection was performed at the distal region of the common iliac vessels, of note patient had very limited lymphatic tissues, but there was no evidence of lymphadenopathy, the vessels were completely skeletonized in terms of lymph node dissection.. A Ryan-Bennett drain was left within the space of Retzius on the left side. This was brought out through a separate stab incision to the left of the midline incision. The drain was sutured to the skin using silk suture, and was later attached to bulb suction. The fascia was closed using double- stranded #1 PDS suture in a running fashion. . Hemostasis within the subcutaneous tissues was excellent. The skin was closed using ana. A sterile gauze dressing was applied over the incision. The Edwards catheter was connected to gravity drainage. The patient tolerated the procedure well was taken to the recovery room in stable condition.
[2021-10-23] MEDS: HYDROcodone/APAP 5-325MG 1 EACH TAB PO PRN (13:41)
[2021-10-23] MEDS: HYDROmorphone 2 MG/ML 1 ML SYRINGE IVP PRN ×2 (14:56→19:42)
[2021-10-23] MEDS: HEPARIN SODIUM,PORCINE/PF 5,000 UNIT/0.5 ML SYRINGE SQ SCH (15:46)
[2021-10-23 16:56] LABS: Glucose,Whole Blood 245 mg/dL (75-99)
[2021-10-23] MEDS: ATORVASTATIN 40 MG TAB PO SCH (18:13)
[2021-10-23 20:54] LABS: Glucose,Whole Blood 250 mg/dL (75-99)
[2021-10-23] MEDS: INSULIN DETEMIR (LEVEMIR) 100 UNIT/ML SYR SQ SCH (21:53)
[2021-10-24] MEDS: FAMOTIDINE 20 MG TAB PO PRN ×3 (00:25→17:27)
[2021-10-24] MEDS: HEPARIN SODIUM,PORCINE/PF 5,000 UNIT/0.5 ML SYRINGE SQ SCH ×3 (00:25→17:18)
[2021-10-24] MEDS: HYDROmorphone 2 MG/ML 1 ML SYRINGE IVP PRN ×2 (00:27→04:46)
[2021-10-24] MEDS: SODIUM CHLORIDE 0.9% 1,000 ML IV SCH ×4 (02:07→18:05)
[2021-10-24] MEDS: LEVOTHYROXINE 50 MCG TAB PO SCH (05:41)
[2021-10-24 07:03] LABS: Glucose,Whole Blood 147 mg/dL (75-99)
[2021-10-24] MEDS: LACTATED RINGERS 1,000 ML IV SCH (07:44)
[2021-10-24] MEDS: HYDROcodone/APAP 5-325MG 1 EACH TAB PO PRN ×4 (08:10→21:04)
[2021-10-24 09:05] LABS: Basophils # (A) 0.09 X 10*3/uL (0.00-0.10); Eosinophils # (A) 0.27 X 10*3/uL (0.04-0.35); HCT 38.2 % (39.6-50.0); HGB 12.9 g/dL (13.0-17.0); Immature Grans, Automated 0.3 %; Lymphocytes # (A) 1.22 X 10*3/uL (0.90-5.00); Lymphocytes % (A) 13.7 %; MCH 29.7 pg (27.0-32.0); MCHC 33.8 g/dL (32.0-37.0); Mean Platelet Volume 9.9 fL (9.5-12.2); Monocytes # (A) 0.81 X 10*3/uL (0.20-1.00); Monocytes % (A) 9.1 %; NRBC Per 100 WBC 0 /100 WBCS (0.0-0.0); Neutrophils # (A) 6.51 X 10*3/uL (1.80-7.70); Neutrophils % (A) 72.9 %; Platelet Count 225 X 10*3/uL (140-440); RBC 4.34 X 10*6/uL (4.40-5.60); RDW 12.8 % (11.5-14.5); WBC 8.93 X 10*3/uL (4.50-10.00)
[2021-10-24 09:15] LABS: African American GFR (CKD) 116.4 (60.0-200.0); Anion Gap 9.6 mmol/L (10.00-18.00); Blood Urea Nitrogen 9.8 mg/dL (9.0-27.0); Calcium 8.4 mg/dL (8.7-10.3); Carbon Dioxide 23.4 mmol/L (20.0-27.5); Non-African American GFR(CKD) 100.4 (60.0-200.0); Potassium 4.3 mmol/L (3.5-5.5)
[2021-10-24 11:26] LABS: Glucose,Whole Blood 99 mg/dL (75-99)
[2021-10-24 16:31] LABS: Glucose,Whole Blood 122 mg/dL (75-99)
--- NOTE | 2021-10-24 17:11 | P.PN ---
Progress Note - Text Progress Note Date: 10/24/21 Postoperative day #1 status post open pelvic lymph node dissection. Doing well, having incisional pain. Denies any nausea or vomiting. Abdomen soft nontender, incision clean dry and intact. PADMINI drain with serosing output A/P POD #1 S/P PLND -Ambulate -Pain control -D/C haddad -Medical consult for his diabetes
[2021-10-24] MEDS: ATORVASTATIN 40 MG TAB PO SCH (17:18)
[2021-10-24 20:48] LABS: Glucose,Whole Blood 185 mg/dL (75-99)
[2021-10-24] MEDS: INSULIN DETEMIR (LEVEMIR) 100 UNIT/ML SYR SQ SCH (21:04)
[2021-10-25] MEDS: HEPARIN SODIUM,PORCINE/PF 5,000 UNIT/0.5 ML SYRINGE SQ SCH ×2 (01:10→08:11)
[2021-10-25] MEDS: HYDROcodone/APAP 5-325MG 1 EACH TAB PO PRN ×4 (01:45→13:34)
[2021-10-25] MEDS: SODIUM CHLORIDE 0.9% 1,000 ML IV SCH ×2 (03:32→13:36)
[2021-10-25] MEDS: LEVOTHYROXINE 50 MCG TAB PO SCH (06:19)
[2021-10-25 06:58] LABS: Glucose,Whole Blood 79 mg/dL (75-99)
[2021-10-25] MEDS ORDERED: PANTOPRAZOLE 40 MG TABLET PO SCH (07:30)
[2021-10-25] MEDS: LACTATED RINGERS 1,000 ML IV SCH (08:07)
[2021-10-25 08:20] LABS: HCT 41.2 % (39.0-53.0); HGB 13.4 gm/dL (13.0-17.5); MCH 29.5 pg (25.0-35.0); MCHC 32.6 g/dL (31.0-37.0); MCV 90.6 fL (80.0-100.0); Mean Platelet Volume 7.4; Platelet Count 211 k/uL (150-450); RBC 4.54 m/uL (4.30-5.90); RDW 13.1 % (11.5-15.5); WBC 7.1 k/uL (3.8-10.6)
[2021-10-25 08:37] LABS: ALT 23 U/L (4-49); AST 30 U/L (17-59); African American GFR (CKD) >90 (>60 ml/min/1.73 sqM); Albumin 3.3 g/dL (3.5-5.0); Albumin/Globulin Ratio 1.4; Alkaline Phosphatase 52 U/L (38-126); Anion Gap 8 mmol/L; Blood Urea Nitrogen 7 mg/dL (9-20); Calcium 8.3 mg/dL (8.4-10.2); Carbon Dioxide 24 mmol/L (22-30); Chloride 101 mmol/L (98-107); Globulin 2.4 g/dL; Glucose 193 mg/dL (74-99); Non-African American GFR(CKD) >90 (>60 ml/min/1.73 sqM); Sodium 133 mmol/L (137-145); Total Bilirubin 0.7 mg/dL (0.2-1.3); Total Protein 5.7 g/dL (6.3-8.2)
--- NOTE | 2021-10-25 11:27 | P.CONS ---
History of Present Illness - Reason for Consult Consult date: 10/25/21 medical management, diabetes mellitus Requesting physician: Gregory Rodriguez - History of Present Illness History of Presenting Illness: Patient is a very pleasant 61-year-old male with a past medical history of prostate cancer, hyperlipidemia, hypothyroidism, and insulin-dependent diabetes mellitus. Patient is currently admitted under urology team and is status post open left pelvic lymph node dissection with lysis of adhesions. Surgical procedure was completed by Dr. Rodriguez 10/24/21. We have been consulted to evaluate patient for medical management of his diabetes. Patient was seen and fully evaluated at the bedside this morning. He is doing well and blood sugars have been controlled. Patient reports postsurgical pain is controlled and that he is urinating without any difficulties. PADMINI drain remains in place with serosanguineous drainage. Postsurgical dressing is clean dry and intact. Patient denies having any headache, lightheadedness, dizziness, chest pain, palpitations, shortness of breath, abdominal pain, or experiencing any numbness/tingling/weakness in his extremities. He is tolerating his diet and denies having any postsurgical nausea or vomiting. Morning labs reviewed and unremarkable with the exception of mild hyponatremia with sodium of 133. Blood glucose levels have been stable and vital signs unremarkable. Review of systems: Pertinent positives and negatives as discussed in HPI, a complete review of systems was performed and all other systems are negative. Physical exam: Vital signs reviewed and stable. General: Nontoxic, no distress and appears stated age. Derm: Skin warm and dry, normal coloration for ethnicity. Head: Atraumatic, normocephalic and symmetric. Eyes: EOMs intact, no lid lag, and anicteric sclera Mouth: no lip lesions, mucus membranes moist Cardiovascular: regular rate and rhythm with normal S1S2, no murmur, positive posterior tibial pulses bilaterally, and cap refill < 2 seconds. Lungs: Respirations even, regular, and unlabored on room air. Lungs CTA bilaterally, no rhonchi, no rales, no wheezing, and no accessory muscle usage. Abdominal: soft, nontender to palpation, no guarding, no appreciable organomegaly. Surgical dressing intact to lower abdomen and groin region. PADMINI drain to suprapubic region. Ext: ROM intact. No gross muscle atrophy, no edema, no contractures Neuro: Speech clear, face symmetrical and CN II-XII grossly intact with no noted focal neuro deficits Psych: Alert and oriented to person, place, time, and situation. Appropriate and pleasant affect. Assessment and Plan of Care: Status post open left pelvic lymph node dissection with lysis of adhesions Prostate cancer status post prostatectomy -Surgical procedure was completed by Dr. Rodriguez 10/24/21. -Management per primary admitting urology team. -DVT prophylaxis with heparin -Symptomatic care and pain management. -Continue close monitoring of I's and O's. Insulin-dependent diabetes mellitus -Blood glucose levels currently stable. Patient to continue scheduled NovoLog 10 units 3 times daily with meals as well as long-acting Levemir 30 units nightly. In addition patient was placed on glycemic protocol with NovoLog sliding scale to maintain tight glycemic control throughout hospitalization. -Heart healthy carb consistent diet. Hyperlipidemia -Continue daily medication regimen with atorvastatin in placement of rosuvastatin secondary to hospital availability. Hypothyroidism -Continue daily medication regimen with Levaquin thyroxine 50 g each morning. Thank you for allowing us to participate in the care of this pleasant patient. Do not hesitate to contact us with questions. Someone can be reached from the [facility] hospitalist group all hours of the day at [phone] or via [employer]. Past Medical History Past Medical History: Cancer, Diabetes Mellitus, GERD/Reflux, Osteoarthritis (OA), Thyroid Disorder Additional Past Medical History / Comment(s): TYPE 1, MIGRAINE HEADACHE, THYROID NODULE, PROSTATE CANCER , History of Any Multi-Drug Resistant Organisms: Other MDRO Past Surgical History: Hernia Repair, Orthopedic Surgery Additional Past Surgical History / Comment(s): reconstruction left wrist, DEBRIDEMENT OF SCROTAL WOUND 2013, triple HERNIA REPAIR WITH MESH, uvula removed, PROSTATECTOMY Past Anesthesia/Blood Transfusion Reactions: No Reported Reaction Past Psychological History: No Psychological Hx Reported Smoking Status: Never smoker Past Alcohol Use History: Occasional Past Drug Use History: Marijuana Additional Drug Use History / Comment(s): RARE OCCASION -INSTRUCTED TO REFRAIN FROM USE FOR AT LEAST 24 HOURS PRIOR TO PROCEDURE - Past Family History Father Family Medical History: Cancer Sister(s) Family Medical History: Cancer Additional Family Medical History / Comment(s): SKIN CANCER Medications and Allergies Home Medications Medication Instructions Recorded Confirmed Type Multivitamins, Thera [Multivitamin 1 tab PO DAILY 07/25/17 10/23/21 History (formulary)] Insulin Glargine,Hum.rec.anlog 38 units PO HS 03/30/19 10/23/21 History [Basaglar Kwikpen U-100] Insulin Aspart [NovoLOG Flexpen] 10 units SQ TID PRN 05/08/21 10/23/21 History Levothyroxine Sodium [Synthroid] 50 mcg PO DAILY 05/08/21 10/23/21 History Rosuvastatin [Crestor] 40 mg PO 1800 05/08/21 10/23/21 History HYDROcodone/APAP 5-325MG [[place] 1 tab PO Q4HR PRN #10 tab 05/11/21 10/23/21 Rx 5-325] HYDROcodone/APAP 5-325MG [[place] 1 tab PO Q4HR PRN 3 Days #18 tab 10/25/21 Rx 5-325] HYDROcodone/APAP 5-325MG [[place] 1 tab PO Q6HR PRN 3 Days #12 tab 10/25/21 Rx 5-325] methocarbamoL [Robaxin] 750 mg PO TID #21 tab 10/25/21 Rx Allergies Allergy/AdvReac Type Severity Reaction Status Date / Time No Known Allergies Allergy Verified 10/23/21 07:15 Physical Exam Vitals: Vital Signs Temp Pulse Pulse Resp BP Pulse Ox 10/25/21 07:51 98.5 F 66 18 134/76 94 L 10/25/21 01:05 99.2 F 69 16 132/78 93 L 10/24/21 19:45 98.4 F 79 16 126/71 93 L 10/24/21 14:00 98.0 F 78 18 138/84 92 L Intake and Output 10/24/21 10/25/21 10/25/21 22:59 06:59 14:59 Intake Total 2100 Output Total 620 50 Balance 1480 -50 Intake: Oral 2100 Output: Drainage 20 50 Anterior Abdomen 20 50 Urine 600 Other: Voiding Method Urinal # Voids 2 Results CBC & Chem 7: 10/25/21 08:04 10/25/21 08:02 Labs: Abnormal Lab Results - Last 24 Hours (Table) 10/24/21 10/24/21 10/24/21 Range/Units 05:29 05:29 16:30 RBC 4.34 L (4.40-5.60) X 10*6/uL Hgb 12.9 L (13.0-17.0) g/dL Hct 38.2 L (39.6-50.0) % Sodium 131 L (135-145) mmol/L Anion Gap 9.60 L (10.00-18.00) mmol/L Glucose 170 H (70-110) mg/dL POC Glucose (mg/dL) 122 H (75-99) mg/dL Calcium 8.4 L (8.7-10.3) mg/dL 10/24/21 Range/Units 20:47 RBC (4.40-5.60) X 10*6/uL Hgb (13.0-17.0) g/dL Hct (39.6-50.0) % Sodium (135-145) mmol/L Anion Gap (10.00-18.00) mmol/L Glucose (70-110) mg/dL POC Glucose (mg/dL) 185 H (75-99) mg/dL Calcium (8.7-10.3) mg/dL
[2021-10-25 11:56] LABS: Glucose,Whole Blood 162 mg/dL (75-99)
[2021-10-25] MEDS ORDERED: INSULIN ASPART (NovoLOG) 100 UNIT/ML VIAL SQ SCH (12:30)
--- NOTE | 2021-10-25 12:43 | P.DS ---
Providers Date of admission: 10/23/21 21:19 Attending physician: Gregory Rodriguez MD Consults: 10/24/21 17:54 Consult Physician Urgent Consulting Provider: Yamil Reid Consult Reason/Comments: DM Do you want consulting provider notified?: Yes Primary care physician: Duane Garcia [facility] Course: this is a 61-year-old male with history of prostate cancer. Post op PSMA showed evidence of persistent cancer within the left pelvic lymph node. he underwent an open left pelvic node dissection. Please see op note dated October 23 for surgery detail. He was admitted to the hospital postoperatively. His Edwards catheter on on postop day #2. At time of discharge was tolerating a diet, ambulating, pain was well-controlled. His abdominal and skin incision was benign Plan - Discharge Summary Discharge Rx Participant: No New Discharge Prescriptions: New HYDROcodone/APAP 5-325MG [[place] 5-325] 1 tab PO Q6HR PRN 3 Days #12 tab PRN Reason: Pain methocarbamoL [Robaxin] 750 mg PO TID #21 tab No Action Multivitamins, Thera [Multivitamin (formulary)] 1 tab PO DAILY Insulin Glargine,Hum.rec.anlog [Basaglar Kwikpen U-100] 38 units PO HS HYDROcodone/APAP 5-325MG [[place] 5-325] 1 tab PO Q4HR PRN #10 tab PRN Reason: Pain Insulin Aspart [NovoLOG Flexpen] 10 units SQ TID PRN PRN Reason: ELEVATED BLOOD SUGAR-SLIDING Levothyroxine Sodium [Synthroid] 50 mcg PO DAILY Rosuvastatin [Crestor] 40 mg PO 1800 Discharge Medication List Multivitamins, Thera [Multivitamin (formulary)] 1 tab PO DAILY 07/25/17 [History] Insulin Glargine,Hum.rec.anlog [Basaglar Kwikpen U-100] 38 units PO HS 03/30/19 [History] Insulin Aspart [NovoLOG Flexpen] 10 units SQ TID PRN 05/08/21 [History] Levothyroxine Sodium [Synthroid] 50 mcg PO DAILY 05/08/21 [History] Rosuvastatin [Crestor] 40 mg PO 1800 05/08/21 [History] HYDROcodone/APAP 5-325MG [[place] 5-325] 1 tab PO Q4HR PRN #10 tab 05/11/21 [Rx] HYDROcodone/APAP 5-325MG [[place] 5-325] 1 tab PO Q6HR PRN 3 Days #12 tab 10/25/21 [Rx] methocarbamoL [Robaxin] 750 mg PO TID #21 tab 10/25/21 [Rx]
[2021-10-25 14:37] VITALS: BP 114/74; PULSE 82; RESP 16; TEMP 98.6
== END 2021-10-25 15:46 ==
LOC: OR 06:53 → 4SSUR 10:38 → OR 21:19 → 4SSUR 21:19
PROVIDERS: ADMIT Urology; ATTEND Urology
DX: C77.5 Secondary and unspecified malignant neoplasm of intrapelvic lymph nodes (principal); Z85.46 Personal history of malignant neoplasm of prostate; K66.0 Peritoneal adhesions (postprocedural) (postinfection); E11.9 Type 2 diabetes mellitus without complications; E87.1 Hypo-osmolality and hyponatremia; K21.9 Gastro-esophageal reflux disease without esophagitis; E03.9 Hypothyroidism, unspecified; E78.5 Hyperlipidemia, unspecified; E04.1 Nontoxic single thyroid nodule; G43.909 Migraine, unspecified, not intractable, without status migrainosus; Z79.890 Hormone replacement therapy; Z79.4 Long term (current) use of insulin; Z79.899 Other long term (current) drug therapy; M19.90 Unspecified osteoarthritis, unspecified site; Z16.24 Resistance to multiple antibiotics; Z90.79 Acquired absence of other genital organ(s); Z98.890 Other specified postprocedural states; Z80.8 Family history of malignant neoplasm of other organs or systems
CPT/HCPCS: 38770; 86900; 86901; 80053; 80048 ×2; 85025 ×2; 85027; 86850; 88307; 93005; G0378 ×3; J2250; J1170 ×3; J2710; J0690; J2405; J2001; J3010; J2370; J0330; J2704; J1644 ×3

== ENCOUNTER → 2021-11-26 | Outpatient (CLI) | payer OTHER | END | disposition home or self-care (01) | LOC: LABWHC1 09:23 | PROVIDERS: ATTEND Urology | DX: C61 Malignant neoplasm of prostate (principal) | CPT/HCPCS: 36415; 84153 ==

== ENCOUNTER → 2021-12-25 | Outpatient (CLI) | payer OTHER ==
[2021-12-25 17:00] LABS: ALT 39 U/L (10-49); AST 24 U/L (14-35); African American GFR (CKD) 115.3 (60.0-200.0); Albumin 4.5 g/dL (3.8-4.9); Albumin/Globulin Ratio 2.87 (1.60-3.17); Alkaline Phosphatase 105 U/L (41-126); BUN/Creat Ratio 18.72 Ratio (12.00-20.00); Blood Urea Nitrogen 13.4 mg/dL (9.0-27.0); Carbon Dioxide 25.8 mmol/L (20.0-27.5); Chloride 99 mmol/L (96-109); Chol/HDL Ratio 2.58 Ratio; Globulin 1.6 g/dL (1.6-3.3); Glucose 302 mg/dL (70-110); LDL Cholesterol,Calculated 95.3 mg/dL (0.0-131.0); Non-African American GFR(CKD) 99.5 (60.0-200.0); Potassium 4.7 mmol/L (3.5-5.5); Sodium 135 mmol/L (135-145)
== END | disposition home or self-care (01) ==
LOC: LABWHC1 07:14
PROVIDERS: ATTEND Internal Medicine Endocrinology, Diabetes & Metabolism
DX: E10.65 Type 1 diabetes mellitus with hyperglycemia (principal)
CPT/HCPCS: 36415; 80053; 80061; 82043; 82570; 83036; 84439; 84443